=== PATIENT | male | born 1960 | race Caucasian/White ===

== ENCOUNTER 2022-05-09 12:11 | Emergency (ER) | payer OTHER ==
[~2022-05-09] VITALS: Ht 172.7 cm; Wt 95.5 kg
[2022-05-09 12:54] VITALS: BP 155/76
[2022-05-09] MEDS ORDERED: METF-1211 PO (13:15)
[2022-05-09] MEDS ORDERED: LOSA-381 PO (13:15)
[2022-05-09] MEDS ORDERED: ATOR10TA69 PO (13:15)
[2022-05-09] MEDS ORDERED: CEPH-558 PO (13:19)
== END 2022-05-09 13:31 | disposition home or self-care (01) ==
LOC: EMS 12:19
DX: S61.212A Laceration without foreign body of right middle finger without damage to nail, initial encounter (principal); E11.9 Type 2 diabetes mellitus without complications; I10 Essential (primary) hypertension; W45.8XXA Other foreign body or object entering through skin, initial encounter; Y93.89 Activity, other specified; Y92.89 Other specified places as the place of occurrence of the external cause; Y99.8 Other external cause status
CPT/HCPCS: 82962; 99283

== ENCOUNTER 2022-05-30 17:50 | Emergency (ER) | payer OTHER ==
[~2022-05-30] VITALS: Ht 172.7 cm; Wt 95.5 kg
[~2022-05-30 17:50] MED LIST: ATOR10TA69 PO; CEPH-558 PO; LOSA-381 PO; METF-1211 PO
[2022-05-30 17:57] VITALS: BP 149/87
[2022-05-30 18:09] LABS: COVID AG,FIA SOURCE NASAL SWAB
[2022-05-30 18:38] LABS: INFLUENZA TYPE A NEGATIVE FOR TYPE A (NEGATIVE); INFLUENZA TYPE B NEGATIVE FOR TYPE B (NEGATIVE)
== END 2022-05-30 22:42 | disposition left against medical advice (07) ==
LOC: EMS 17:52
DX: Z53.21 Procedure and treatment not carried out due to patient leaving prior to being seen by health care provider (principal); Z20.822 Contact with and (suspected) exposure to COVID-19
CPT/HCPCS: 87804